=== PATIENT | male | born 1950 | race Caucasian/White ===

== ENCOUNTER 2016-06-11 16:35 | Emergency (ER) | payer MEDICARE, OTHER ==
[~2016-06-11] VITALS: Ht 177.8 cm; Wt 63.5 kg
[~2016-06-11 16:35] MED LIST: LOTR5CAP2
[2016-06-11 17:13] VITALS: BP 138/82; PULSE 76; RESP 18; TEMP 98.3; O2SAT 93
[2016-06-11 17:57] LABS: BASOPHIL % 0.5 % (0.0-2.0); EOSINOPHIL # 0.2 TH/MM3 (0-0.4); EOSINOPHIL % 3.1 % (0.0-4.0); HEMO FLAGS DIFF FINAL; LYMPHOCYTE # 1.9 TH/MM3 (1.0-4.8); MEAN CELL VOLUME 95.7 FL (80.0-100.0); MEAN CORPUSCULAR HEMOGLOBIN 32.9 PG (27.0-34.0); MEAN CORPUSCULAR HGB CONC 34.3 % (32.0-36.0); MONO % 10.3 % (0.0-8.0); NEUT % 58.1 % (16.0-70.0); PLATELET COUNT 224 TH/MM3 (150-450); RED BLOOD COUNT 3.66 MIL/MM3 (4.50-5.90); WHITE BLOOD COUNT 6.9 TH/MM3 (4.0-11.0)
[2016-06-11 17:58] LABS: AMPHETAMINE, URINE NEG (NEG); BARBITURATES, URINE NEG (NEG); COCAINE, URINE POS (NEG)
[2016-06-11 18:11] LABS: ANION GAP 9 MEQ/L (5-15)
[2016-06-11 18:15] LABS: ALKALINE PHOSPHATASE 85 U/L (45-117); ALT (GPT) 27 U/L (12-78); AST (GOT) 29 U/L (15-37); BICARBONATE 26.1 MEQ/L (21.0-32.0); BLOOD UREA NITROGEN 26 MG/DL (7-18); CHLORIDE 108 MEQ/L (98-107); GLOMERULAR FILTRATION RATE 64 ML/MIN (>89); POTASSIUM 4.1 MEQ/L (3.5-5.1); SODIUM (NA) 143 MEQ/L (136-145); TOTAL BILIRUBIN ADULT 0.5 MG/DL (0.2-1.0)
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
[2016-06-11 22:37] VITALS: BP 131/62; PULSE 60; RESP 18; O2SAT 96
[2016-06-12 03:45] VITALS: BP 124/65; PULSE 72; RESP 19; O2SAT 97
[2016-06-12] MEDS ORDERED: LOVA20TA PO (09:08)
[2016-06-12] MEDS ORDERED: METO25TA6 PO (09:08)
== END 2016-06-12 09:21 ==
LOC: NEPJ 16:35
DX: F19.94 Other psychoactive substance use, unspecified with psychoactive substance-induced mood disorder (principal); R45.851 Suicidal ideations; I10 Essential (primary) hypertension; I50.9 Heart failure, unspecified; I25.2 Old myocardial infarction; E78.00 Pure hypercholesterolemia, unspecified; Z86.711 Personal history of pulmonary embolism; Z72.0 Tobacco use
CPT/HCPCS: 80053; 80307; 85025; 99285

== ENCOUNTER 2016-10-31 12:40 | Emergency (ER) | payer MEDICARE, OTHER ==
[~2016-10-31] VITALS: Ht 172.7 cm; Wt 63.5 kg
[2016-10-31 12:40] VITALS: BP 133/86; PULSE 79; RESP 18; TEMP 98.7; O2SAT 99
[~2016-10-31 12:40] MED LIST changes: -LOTR5CAP2; +LOVA20TA PO; +METO25TA6 PO
[2016-10-31] MEDS ORDERED: oxyCODONE/ACETAMINOPHEN 5 MG/325 MG TAB PO ONE (13:15)
[2016-10-31] MEDS ORDERED: TETANUS/DIPHTHERIA TOXOID ADULT 0.5 ML VIAL IM ONE (13:15)
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
[2016-10-31] MEDS ORDERED: ASPI81TA11 PO (13:28)
[2016-10-31] MEDS ORDERED: LISI-515 PO (13:28)
[2016-10-31] MEDS ORDERED: METO25TA3 PO (13:28)
[2016-10-31] MEDS ORDERED: AMLO5TAB2 PO (13:28)
[2016-10-31] MEDS ORDERED: OXYC-395 PO (13:28)
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
[2016-10-31] MEDS ORDERED: HYDR-3533 PO (14:14)
[2016-10-31] MEDS ORDERED: CEPH500C PO (14:14)
[2016-10-31] MEDS ORDERED: BACT800T5 PO (14:14)
[2016-10-31] MEDS ORDERED: IBUP800T23 PO (14:14)
== END 2016-10-31 14:50 | disposition home or self-care (01) ==
LOC: PHEFT 12:40
DX: S00.03XA Contusion of scalp, initial encounter (principal); S01.81XA Laceration without foreign body of other part of head, initial encounter; S50.812A Abrasion of left forearm, initial encounter; S50.811A Abrasion of right forearm, initial encounter; S80.812A Abrasion, left lower leg, initial encounter; S80.811A Abrasion, right lower leg, initial encounter; S70.212A Abrasion, left hip, initial encounter; Z23 Encounter for immunization; V29.3XXA Motorcycle rider (driver) (passenger) injured in unspecified nontraffic accident, initial encounter; I10 Essential (primary) hypertension; E78.00 Pure hypercholesterolemia, unspecified; I25.2 Old myocardial infarction; Z72.0 Tobacco use; Z85.72 Personal history of non-Hodgkin lymphomas; Z86.79 Personal history of other diseases of the circulatory system; Z87.39 Personal history of other diseases of the musculoskeletal system and connective tissue; Z86.711 Personal history of pulmonary embolism
CPT/HCPCS: 70450; 73502; 90471; 90714

== ENCOUNTER 2016-12-27 19:19 | Emergency (ER) | payer MEDICARE ==
[~2016-12-27] VITALS: Ht 175.3 cm; Wt 63.5 kg
[~2016-12-27 19:19] MED LIST changes: +AMLO5TAB2 PO; +ASPI81TA11 PO; +BACT800T5 PO; +CEPH500C PO; +HYDR-3533 PO; +IBUP800T23 PO; +LISI-515 PO; -LOVA20TA PO; +METO25TA3 PO; -METO25TA6 PO; +OXYC-395 PO
[2016-12-27] MEDS ORDERED: GADODIAMIDE PF 287 MG/ML 5 ML VIAL (for RAD MRI) IVCONTRAST ONE (19:20)
[2016-12-27 19:24] VITALS: BP 137/81; PULSE 95; RESP 15; TEMP 99.9; O2SAT 97
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
[2016-12-27 21:28] LABS: AUTOMATED NEUTROPHIL # 6.9 TH/MM3 (1.8-7.7); BASOPHIL % 0.3 % (0.0-2.0); EOSINOPHIL # 0.2 TH/MM3 (0-0.4); EOSINOPHIL % 1.5 % (0.0-4.0); HEMATOCRIT 36.6 % (39.0-51.0); HEMO FLAGS DIFF FINAL; LYMPH % 24.8 % (9.0-44.0); LYMPHOCYTE # 2.7 TH/MM3 (1.0-4.8); MEAN CELL VOLUME 92.2 FL (80.0-100.0); MEAN CORPUSCULAR HEMOGLOBIN 31.1 PG (27.0-34.0); MEAN CORPUSCULAR HGB CONC 33.7 % (32.0-36.0); MONO % 8.7 % (0.0-8.0); NEUT % 64.7 % (16.0-70.0); PLATELET COUNT 218 TH/MM3 (150-450); RED BLOOD COUNT 3.97 MIL/MM3 (4.50-5.90); RED CELL DISTRIBUTION WIDTH 14.5 % (11.6-17.2); WHITE BLOOD COUNT 10.7 TH/MM3 (4.0-11.0)
[2016-12-27 21:57] LABS: ANION GAP 7 MEQ/L (5-15); AST (GOT) 18 U/L (15-37); BICARBONATE 24.8 MEQ/L (21.0-32.0); BLOOD UREA NITROGEN 20 MG/DL (7-18); CHLORIDE 105 MEQ/L (98-107); GLOMERULAR FILTRATION RATE 70 ML/MIN (>89); POTASSIUM 3.5 MEQ/L (3.5-5.1); SODIUM (NA) 137 MEQ/L (136-145)
[2016-12-27 21:58] LABS: ALT (GPT) 16 U/L (12-78)
[2016-12-27 22:00] LABS: ALKALINE PHOSPHATASE 83 U/L (45-117); TOTAL BILIRUBIN ADULT 0.5 MG/DL (0.2-1.0)
--- NOTE | 2016-12-27 22:12 | RADRPT ---
EXAM DATE/TIME: 12/27/2016 21:36 [facility] COMPARISON: No previous studies available for comparison. INDICATIONS : Intractable back pain. RADIATION DOSE: 27.41 CTDIvol (mGy) MEDICAL HISTORY : Hypertension. Lymphoma. Cardiovascular disease SURGICAL HISTORY : Appendectomy. IVC Filter placement. ENCOUNTER: Initial ACUITY: 1 day PAIN SCALE: 8/10 LOCATION: Paraspinal TECHNIQUE: Volumetric scanning of the lumbar spine was performed. Multiplanar reconstructions in the sagittal, coronal and oblique axial planes were performed. Using automated exposure control and adjustment of the mA and/or kV according to patient size, radiation dose was kept as low as reasonably achievable t o obtain optimal diagnostic quality images. DICOM format image data is available electronically for review and comparison. FINDINGS: There is mild S-shaped thoracolumbar curvature. No fracture or acute-appearing malalignment. Vertebra l bodies have normal height. T12-L1: Severe disc space narrowing with vacuum phenomenon. Diffuse bulging of the disc annulus and mild bila teral facet osteoarthritis. No foraminal or spinal stenosis demonstrated. L1-L2: Severe disc space narrowing with vacuum phenomena. Small, broad/diffuse disc osteophyte complex and m ild bilateral facet osteoarthritis. There is mild left foraminal stenosis. L2-L3: Severe disc space narrowing with vacuum phenomena. There is small, broad/diffuse disc protrusion and mild to moderate bilateral facet osteoarthritis. There is mild left foraminal stenosis. L3-L4: The disc has severe loss of height and vacuum phenomena. There is a small moderate, broad/diffuse dis c osteophyte complex and moderate bilateral facet osteoarthritis. There is mild spinal stenosis witho ut evidence of transiting nerve root impingement. There is mild bilateral foraminal encroachment. L4-L5: The disc has severe loss of height and vacuum phenomena. Small, broad/diffuse disc osteophyte complex and moderate bilateral facet osteoarthritis noted. There is mild foraminal stenosis, mostly on the r ight. L5-S1: The disc is severe loss of height and vacuum phenomena. There is a small moderate, broad/diffuse but especially left paracentral disc osteophyte complex. There is effacement of the left lateral recess a nd potentially mild impingement on the transiting left S1 nerve root. There is mild to moderate bilat eral foraminal stenosis. Cyst are seen in both kidneys. There is a 4 mm stone of the mid zone of the left kidney that appears to be nonobstructing. Patient has an IVC filter. No clearly see any pathologic lymphadenopathy in the visualized retroperitoneum. CONCLUSION: A scoliosis and multilevel lumbar spine degenerative changes as detailed above. No fracture or acute- appearing malalignment. Zafar Ramos MD on December 27, 2016 at 22:04 Board Certified Radiologist. This report was verified electronically.
[2016-12-27] MEDS ORDERED: MORPHINE SULFATE 8 MG/ML INJ IV PUSH ONE (22:15)
--- NOTE | 2016-12-27 22:21 | PD ---
Physical Exam Narrative I, Dr. Mandujano, have reviewed the advance practice practitioner's documentation and am in agreement, met with the patient face to face, made the diagnosis, and the medical decision making was done by me. *My assessment and Findings: Musculoskeletal pain vs. pathologic fracture vs. metastasis 66yo M with PMH of nonhodkin's lymphoma presents to the ED with c/o lower back pain that started yesterday. Denies any trauma, fever, chest pain, sob, n/v, abdominal pain, focal weakness or numbness. Pt saw his PMD today and was given her oxycodone which his has been taking for chronic pain. States it was not helping. States he has also had 50 lb weight loss in the last few months. Pt initially denies any IVDA but then said he injects the oxycodone that he was prescribed to make it stronger. Labs reviewed, no leukocytosis. H/H at baseline. BMP unremarkable. CT LS showed scoliosis and multilevel lumbar spine degenerative changes. No fracture or acute appearing malalignment. Pt given morphine 6mg IV. Given that pt is an IVDA and have severe back pain, will do MRI LS to make sure there is no paraspinal abscess. Pt seen ambulating in the ED without assistance. Pain has improved after morphine. MRI LS negative for abscess in lumbar spine. Degenerative disc disease. Conus intact. No significant central canal stenosis. Return precautions given. Data Data Last Documented VS Vital Signs Date Time Temp Pulse Resp B/P (MAP) Pulse Ox O2 Delivery O2 Flow Rate FiO2 12/27/16 19:24 99.9 95 15 137/81 (99) 97 Room Air Orders Orders Complete Blood Count With Diff (12/27/16 20:29) Comprehensive Metabolic Panel (12/27/16 20:29) Ct Lumb Spine W/O Contrast (12/27/16 20:29) Urinalysis - C+S If Indicated (12/27/16 22:13) Morphine Inj (Morphine Inj) (12/27/16 22:15) Mri L Spine W&W/O Contrast (12/27/16 ) Gadodiamide Pf Inj (Omniscan Pf Inj) (12/27/16 19:20) Labs Laboratory Tests Test 12/27/16 21:05 White Blood Count 10.7 TH/MM3 Red Blood Count 3.97 MIL/MM3 Hemoglobin 12.4 GM/DL Hematocrit 36.6 % Mean Corpuscular Volume 92.2 FL Mean Corpuscular Hemoglobin 31.1 PG Mean Corpuscular Hemoglobin Concent 33.7 % Red Cell Distribution Width 14.5 % Platelet Count 218 TH/MM3 Mean Platelet Volume 7.3 FL Neutrophils (%) (Auto) 64.7 % Lymphocytes (%) (Auto) 24.8 % Monocytes (%) (Auto) 8.7 % Eosinophils (%) (Auto) 1.5 % Basophils (%) (Auto) 0.3 % Neutrophils # (Auto) 6.9 TH/MM3 Lymphocytes # (Auto) 2.7 TH/MM3 Monocytes # (Auto) 0.9 TH/MM3 Eosinophils # (Auto) 0.2 TH/MM3 Basophils # (Auto) 0.0 TH/MM3 CBC Comment DIFF FINAL Differential Comment Blood Urea Nitrogen 20 MG/DL Creatinine 1.05 MG/DL Random Glucose 107 MG/DL Total Protein 7.7 GM/DL Albumin 3.5 GM/DL Calcium Level 9.0 MG/DL Alkaline Phosphatase 83 U/L Aspartate Amino Transf (AST/SGOT) 18 U/L Alanine Aminotransferase (ALT/SGPT) 16 U/L Total Bilirubin 0.5 MG/DL Sodium Level 137 MEQ/L Potassium Level 3.5 MEQ/L Chloride Level 105 MEQ/L Carbon Dioxide Level 24.8 MEQ/L Anion Gap 7 MEQ/L Estimat Glomerular Filtration Rate 70 ML/MIN [facility] Supervised Visit with FRANCESCO: Yes Diagnosis Primary Impression: Back pain Qualified Codes: M54.5 - Low back pain Patient Instructions: General Instructions Departure Forms: Tests/Procedures Additional Instruction: Please follow up with your pain management physician for your back pain. Return to the ED if symptoms worsen. Med/Other Pt SpecificInfo: Prescription(s) given Scripts Acetaminophen (Tylenol) 325 Mg Tab 650 MG PO Q6H Y for PAIN SCALE 1 TO 4, #20 TAB 0 Refills Prov: Sol Mandujano DO 12/28/16 Condition: Stable Sol Mandujano DO Dec 27, 2016 22:21
--- NOTE | 2016-12-28 00:36 | RADRPT ---
EXAM DATE/TIME: 12/27/2016 23:08 [facility] COMPARISON: CT LUMBAR SPINE W/O CONTRAST, December 27, 2016, 21:36. INDICATIONS : Abscess. CONTRAST: 13 cc Omniscan (gadodiamide) IV MEDICAL HISTORY : Hypertension. Hypercholesterolemia. Cardiovascular disease. Non Hodgkins Lymphoma. [place]. PE. SURGICAL HISTORY : Appendectomy. Tonsillectomy. IVC Filter placement. Bi-lateral ankle. Right wrist. ENCOUNTER: Subsequent ACUITY: 2 day PAIN SCORE: 10/10 LOCATION: Bilateral Paraspinal TECHNIQUE: Multiplanar multisequence MRI of the lumbar spine was performed with and without contrast. FINDINGS: Bilateral renal cysts are present. No significant change compared with the CT lumbar spine performed earlier this evening. There is multilevel degenerative disc disease with broad-based posterior disc osteophyte complexes at every level. These result in mild lateral recess encroachment at every level. On the left side there is mild to moderate foraminal stenosis at L4-5 and L5-S1. On the right side th ere is mild to moderate foraminal stenosis at L5-S1 and there is mild foraminal encroachment at the o ther levels. Minimal scoliosis. No fracture or spondylolisthesis. Conus intact. CONCLUSION: 1. Negative for abscess in the lumbar spine. Degenerative disc disease as above. Conus intact. No sig nificant central canal stenosis. Nick Erazo MD on December 28, 2016 at 0:29 Board Certified Radiologist. This report was verified electronically.
[2016-12-28] MEDS ORDERED: TYLE325T PO (00:52)
== END 2016-12-28 01:18 | disposition home or self-care (01) ==
LOC: NEPD 19:19
DX: M54.5 Low back pain (principal); Z85.72 Personal history of non-Hodgkin lymphomas; I10 Essential (primary) hypertension; E78.00 Pure hypercholesterolemia, unspecified; Z86.711 Personal history of pulmonary embolism; Z79.01 Long term (current) use of anticoagulants
CPT/HCPCS: 72131; 72158; 80053; 85025; 96374; 99285; A9579; J2270